=== PATIENT | female | born 1990 | race Caucasian/White ===

== ENCOUNTER → 2018-06-07 | Outpatient (CLI) | payer MEDICAID ==
[2014-05-06 13:29] VITALS: BMI 34.4
[~2018-06-07] MED LIST: ACET-1966 PO; CEPH-13 PO; FERR160T25 PO; IBU600 PO; IRON1TAB55 PO; NO CURRENT MEDS; OMEP-125 PO; PREN-123 PO; PREN-67 PO
--- NOTE | 2018-06-07 10:51 | EKG ---
[place] [facility] [place] NAME: EVERT STOUT : [id number] MR: [id number] V: [id number] EXAM DATE: ORDERING PHYSICIAN: EVERT PRICE TECHNOLOGIST: Test Reason : racing heartrate Blood Pressure : / mmHG Vent. Rate : 070 BPM Atrial Rate : 070 BPM P-R Int : 122 ms QRS Dur : 080 ms QT Int : 394 ms P-R-T Axes : 035 043 040 degrees QTc Int : 425 ms Sinus rhythm with premature atrial complexes Otherwise normal ECG No previous ECGs available Confirmed by Paco Crowder [id number] on 06/07/2018 7:27:10 PM Referred By: Confirmed By:Paco Castellano
== END ==
LOC: RESP 10:35
PROVIDERS: ATTEND Physician Assistant
DX: R00.2 Palpitations (principal)
CPT/HCPCS: 93005

== ENCOUNTER 2018-07-07 07:52 | Emergency (ER) | payer SELFPAY ==
[2014-05-06 13:29] VITALS: Wt 97.5 kg
[2018-07-07] MEDS ORDERED: VENL37.594 PO (08:04)
[2018-07-07] MEDS ORDERED: FERR159T PO (08:04)
[2018-07-07] MEDS ORDERED: TRAZ50TA34 PO (08:04)
[2018-07-07] MEDS ORDERED: CHOL10005 PO (08:04)
[2018-07-07] MEDS ORDERED: CEPHALEXIN MONO 500 MG CAP PO ONE (09:25)
[2018-07-07] MEDS ORDERED: CEPH500T7 PO (09:27)
--- NOTE | 2018-07-07 09:28 | ER Report ---
History and Physical Time Seen By MD: 08:00 Hx. of Stated Complaint: blood in urine, pain in lower abd. and flanks HPI/ROS Gross hematuria and b/l low back pain for 2-3 days. No fever. No abdominal pain. No dysuria, urgency/frequency. No flank pain. No vaginal bleeding or discharge. No recent trauma. Remainder of the 14 system rev: Yes Allergies: Coded Allergies: pertussis vaccine,adsorbed (Verified Allergy, Severe, FEVER, 08/26/14) Uncoded Allergies: HAYFEVER (Allergy, Intermediate, SWELLING, 09/02/11) Home Meds Active Scripts Cephalexin 500 Mg Tab (KEFLEX 500 MG TAB) 500 Mg Tablet, 500 MG PO BID, #10 TAB Prov:FERNANDO GREENE MD 07/07/18 Reported Medications Trazodone Hcl (TRAZODONE HCL) 50 Mg Tablet, 50 MG PO QHS 07/07/18 Venlafaxine Hcl (EFFEXOR XR) 37.5 Mg Cap.er.24h, 37.5 MG PO QDAY 07/07/18 Ferrous Sulfate, Dried (IRON) 159 Mg Tablet.er, 159 MG PO 07/07/18 Cholecalciferol (Vitamin D3) (VITAMIN D3) 1,000 Unit Tablet, 1000 UNIT PO, TAB 07/07/18 Discontinued Reported Medications Acetaminophen (TYLENOL) 325 Mg Tablet, 650 MG PO DAILY 04/01/14 Hx Smoking: No Smoking Status: Never Smoker Exposure to Second Hand Smoke?: No Constitutional Vital Sign - Last 24 Hours 07/07/18 07/07/18 07/07/18 07/07/18 07:58 08:00 08:30 09:00 Temp 98.2 Pulse 97 86 73 71 Resp 18 B/P (MAP) 114/70 (85) 103/72 (82) Pulse Ox 93 93 95 95 O2 Delivery Room Air 07/07/18 09:30 Pulse 81 B/P (MAP) 112/75 (87) Pulse Ox 95 Physical Exam General Appearance: The patient is alert, has no immediate need for airway protection and no current signs of toxicity. Eyes: Pupils equal and round no injection. Respiratory: Chest is non tender, lungs are clear to auscultation. Cardiac: regular rate and rhythm Gastrointestinal: Abdomen is soft and non tender, no masses, bowel sounds normal. DIFFERENTIAL DIAGNOSIS: After history and physical exam differential diagnosis was considered for kidney stone, UTI, , trauma Medical Decision Making Data Points Laboratory Hematology Test 07/07/18 07:55 Urine Color Yellow Urine Clarity Turbid Urine pH 7.0 pH (4.8-9.5) Urine Specific [place] 1.024 Urine Protein 30 mg/dL (NEGATIVE) Urine Glucose (UA) Negative mg/dL (NEGATIVE) Urine Ketones Negative mg/dL (NEGATIVE) Urine Blood Large (NEGATIVE) Urine Nitrite Negative (NEGATIVE) Urine Bilirubin Negative (NEGATIVE) Urine Urobilinogen Negative mg/dL (0.2-1.9) Urine Leukocyte Esterase Large (NEGATIVE) Urine RBC 81 /HPF (0-2/HPF) Urine WBC 25 /HPF (0-5/HPF) Urine Squamous Epithelial Cells Many /LPF (</=FEW) Urine Transitional Epithelial Cells Many /LPF (NONE-FEW) Urine Amorphous Crystals Few /HPF Urine Bacteria Few /HPF (NONE-FEW) Urine Mucus Few /HPF (NONE-FEW) Urine HCG, Qualitative Negative (NEGATIVE) Chemistry Test 07/07/18 07:55 Urine Color Yellow Urine Clarity Turbid Urine pH 7.0 pH (4.8-9.5) Urine Specific [place] 1.024 Urine Protein 30 mg/dL (NEGATIVE) Urine Glucose (UA) Negative mg/dL (NEGATIVE) Urine Ketones Negative mg/dL (NEGATIVE) Urine Blood Large (NEGATIVE) Urine Nitrite Negative (NEGATIVE) Urine Bilirubin Negative (NEGATIVE) Urine Urobilinogen Negative mg/dL (0.2-1.9) Urine Leukocyte Esterase Large (NEGATIVE) Urine RBC 81 /HPF (0-2/HPF) Urine WBC 25 /HPF (0-5/HPF) Urine Squamous Epithelial Cells Many /LPF (</=FEW) Urine Transitional Epithelial Cells Many /LPF (NONE-FEW) Urine Amorphous Crystals Few /HPF Urine Bacteria Few /HPF (NONE-FEW) Urine Mucus Few /HPF (NONE-FEW) Urine HCG, Qualitative Negative (NEGATIVE) Urinalysis Test 07/07/18 07:55 Urine Color Yellow Urine Clarity Turbid Urine pH 7.0 pH (4.8-9.5) Urine Specific [place] 1.024 Urine Protein 30 mg/dL (NEGATIVE) Urine Glucose (UA) Negative mg/dL (NEGATIVE) Urine Ketones Negative mg/dL (NEGATIVE) Urine Blood Large (NEGATIVE) Urine Nitrite Negative (NEGATIVE) Urine Bilirubin Negative (NEGATIVE) Urine Urobilinogen Negative mg/dL (0.2-1.9) Urine Leukocyte Esterase Large (NEGATIVE) Urine RBC 81 /HPF (0-2/HPF) Urine WBC 25 /HPF (0-5/HPF) Urine Squamous Epithelial Cells Many /LPF (</=FEW) Urine Transitional Epithelial Cells Many /LPF (NONE-FEW) Urine Amorphous Crystals Few /HPF Urine Bacteria Few /HPF (NONE-FEW) Urine Mucus Few /HPF (NONE-FEW) Urine HCG, Qualitative Negative (NEGATIVE) ED Course/Re-evaluation ED Course Benign physical exam. UA shows hematuria but not clean catch to determine infection. Culture sent. Given no other symptoms of a possible kidney stone, will assume possible early UTI? Will start on abx. Told to follow up with her PCM, and if not infection by culture, should have further testing. Pt. understands plan. HCG negative. Give RX for Keflex Decision to Disposition Date: Jul 07, 2018 Decision to Disposition Time: 09:25 Depart Departure Latest Vital Signs Vital Signs Date Time Temp Pulse Resp B/P (MAP) Pulse Ox O2 Delivery O2 Flow Rate FiO2 07/07/18 09:30 81 112/75 (87) 95 07/07/18 07:58 98.2 18 Room Air Impression: Primary Impression: Hematuria Condition: Improved Disposition: HOME OR SELF-CARE Referrals: EVERT PRICE (PCP) New Scripts Cephalexin 500 Mg Tab (KEFLEX 500 MG TAB) 500 Mg Tablet 500 MG PO BID, #10 TAB Prov: FERNANDO GREENE MD 07/07/18 Patient Instructions: Hematuria (ED) Problem Qualifiers Primary Impression: Hematuria Hematuria type: gross Qualified Codes: R31.0 - Gross hematuria FERNANDO GREENE MD Jul 07, 2018 09:28
[2018-07-07 09:30] VITALS: BP 112/75
== END 2018-07-07 09:39 | disposition home or self-care (01) ==
LOC: ER 08:17
DX: M54.5 Low back pain (principal); R31.9 Hematuria, unspecified
CPT/HCPCS: 81001; 81025; 87088; 99283